=== PATIENT | female | born 1970 | race Caucasian/White ===

== ENCOUNTER 2018-02-18 11:24 | Emergency (ER) | payer SELFPAY ==
[~2018-02-18] VITALS: Ht 165.1 cm; Wt 50.0 kg
[2018-02-18] MEDS ORDERED: DIPHENHYDRAMINE 50MG/ML VIAL IM STA (11:32)
[2018-02-18] MEDS ORDERED: OLANZAPINE 10 MG/VIAL IM STA (11:32)
[2018-02-18] MEDS ORDERED: LORAZEPAM 2MG/ML CPJ IM STA (11:32)
[2018-02-18 11:57] LABS: BASOPHILS % 0.5 % (0.0-2.0); EOSINOPHILS % 2.1 % (0.0-5.0); HEMATOCRIT. 34.8 % (36.0-48.0); HEMOGLOBIN. 11.4 g/dL (12.0-16.0); LYMPHOCYTES % 34.1 % (20.0-50.0); MEAN CORPUSCULAR HEMOGLOBIN 26.2 pg (28.0-32.0); MEAN CORPUSCULAR VOLUME 79.7 fL (81.0-99.0); MEAN PLATELET VOLUME 7.4 fl (7.4-10.4); NEUTROPHILS % 56.3 % (40.0-76.0); PLATELET 325 x1000/uL (130-400); RED BLOOD CELL COUNT 4.37 mill/uL (4.2-5.4); RED CELL DISTRIBUTION WIDTH 15.9 % (11.6-14.6)
[2018-02-18 12:03] LABS: CHLORIDE 108 mEq/L (98-107)
[2018-02-18 12:07] LABS: ETHANOL BLOOD < 10 mg/dL
[2018-02-18 13:45] LABS: CLARITY URINE CLEAR (CLEAR); COLOR URINE YELLOW (YELLOW); KETONES URINE NEGATIVE (NEGATIVE); LEUKOCYTE ESTERASE URINE NEGATIVE (NEGATIVE); NITRITE URINE NEGATIVE (NEGATIVE); OCCULT BLOOD URINE TRACE (NEGATIVE); PH URINE 5.5 (4.5-8.0); PROTEIN URINE NEGATIVE (NEGATIVE); SPECIFIC GRAVITY URINE 1.006 (1.005-1.030); UROBILINOGEN URINE 0.2 E.U./dL (0.2-1.0)
[2018-02-18 14:07] LABS: CANNABINOID URINE SCREEN NEGATIVE (NEGATIVE); METHADONE URINE SCREEN NEGATIVE (NEGATIVE); OPIATES URINE SCREEN NEGATIVE (NEGATIVE); PHENCYCLIDINE URINE SCREEN NEGATIVE (NEGATIVE)
[2018-02-18 14:08] LABS: *BARBITURATES SCREEN URINE NEGATIVE (NEGATIVE); *BENZODIAZEPINES SCREEN URINE NEGATIVE (NEGATIVE); *COCAINE SCREEN URINE NEGATIVE (NEGATIVE)
[2018-02-18 14:26] LABS: *AMPHETAMINES SCREEN URINE PRESUMTIVE POSITIVE (NEGATIVE)
[2018-02-18] MEDS ORDERED: OLANZAPINE 10 MG/VIAL IM ONE (21:00)
[2018-02-19 10:42] VITALS: BP 136/82
== END 2018-02-19 10:54 | disposition home or self-care (01) ==
LOC: ER 11:24 → EDBD 11:24 → ER 02-19 10:54
DX: F15.10 Other stimulant abuse, uncomplicated (principal); R45.1 Restlessness and agitation; R45.851 Suicidal ideations; Z78.1 Physical restraint status
CPT/HCPCS: 36415; 80053; 80305; 81003; 82962; 85025; 96372; 99284; G0482; J1200; J2060; J3490